=== PATIENT | female | born 1975 | race Caucasian/White ===

== ENCOUNTER 2016-10-10 09:38 | Emergency (ER) | payer OTHER ==
[2016-10-10 09:44] VITALS: BMI 25.1
[2016-10-10] MEDS ORDERED: ACETAMINOPHEN 325 MG TABLET (FP) PO ONE (09:45)
[2016-10-10] MEDS ORDERED: ACETAMINOPHEN 1000 MG/100 ML VIAL (NON FORMULARY) IVPB ONE (09:57)
[2016-10-10] MEDS ORDERED: SODIUM CHLORIDE 1,000 ML IV STA ×2 (09:57→11:47)
--- NOTE | 2016-10-10 10:06 | PDOC ---
History of Present Illness - General Chief Complaint: Pain Stated Complaint: FEVER, HEADACHE, BACK PAIN Time Seen by Provider: 10/10/16 09:54 History Source: Patient Exam Limitations: No Limitations - History of Present Illness Initial Comments: CHIEF COMPLAINT: 41 y/o febrile, tachycardic female with no significant PMH c/ o flu like symptoms for the past 4 days. HISTORY OF PRESENT ILLNESS: The patient admits to fever, chills, body aches, cough, runny nose and right side pain for the past 4 days. She denies sore throat, n/v/d, constipation, hematuria, dysuria. She has been taking Ibuprofen , dayquil and nyquil at home for her symptoms. She did not take anything for her symptoms today. Vital signs on arrival are notable for pulse of 125 secondary to temp of 102.8. REVIEW OF SYSTEMS: GENERAL/CONSTITUTIONAL: + fever/chills. No weakness. No weight change. HEAD, EYES, EARS, NOSE AND THROAT: No change in vision. No ear pain or discharge. No sore throat. CARDIOVASCULAR: No chest pain or shortness of breath. RESPIRATORY: +cough. No wheezing, or hemoptysis. GASTROINTESTINAL: +right side pain. No nausea, vomiting, diarrhea, constipation. GENITOURINARY: No dysuria, frequency, or change in urination. MUSCULOSKELETAL: No joint or muscle swelling or pain. No neck or back pain. SKIN: No rash or easy bruising. NEUROLOGIC: No headache, vertigo, loss of consciousness, or loss of sensation. PHYSICAL EXAM: GENERAL: The patient is awake, alert, and fully oriented, in no acute distress. She is ambulatory and well appearing, but warm to touch. Very intermittent dry cough with deep inspiration. HEAD: Normal with no signs of trauma. ENT: Pupils equal, round and reactive to light, extraocular movements intact, sclera anicteric, conjunctiva clear. Neck supple. LUNGS: Clear to auscultation bilaterally. Normal excursion. No respiratory distress or use of accessory muscles. CV: RRR, S1/S2, no MRG. Cap refill < 2 sec. ABDOMEN: Soft, non-distended, TTP of RUQ with negative santoro's sign. Right flank pain with palpation. No rebound, guarding or rigidity. BACK: Right CVA TTP. No left CVA TTP. EXTREMITIES: Normal range of motion, no edema. NEUROLOGICAL: Normal speech, normal gait. CN II-XII grossly intact. PSYCH: Normal mood, normal affect. SKIN: Warm, dry, normal turgor, no rashes or lesions noted. Past History - Past Medical History Allergies/Adverse Reactions: Allergies Allergy/AdvReac Type Severity Reaction Status Date / Time No Known Allergies Allergy Verified 10/10/16 09:44 Home Medications: Ambulatory Orders Acetaminophen [Tylenol] 650 mg PO Q4H #20 tablet 10/10/16 Ciprofloxacin [Cipro -] 500 mg PO Q12H #20 tablet 10/10/16 Ibuprofen 600 mg PO Q6H #20 tablet 10/10/16 Thyroid Disease: Yes - Psycho/Social/Smoking Cessation Hx Anxiety: No Suicidal Ideation: No Smoking History: Never smoked Hx Alcohol Use: No Drug/Substance Use Hx: No Substance Use Type: None *Physical Exam - Vital Signs Last Vital Signs Temp Pulse Resp BP Pulse Ox 102.8 F H 125 H 20 147/110 96 10/10/16 09:40 10/10/16 09:40 10/10/16 09:40 10/10/16 09:40 10/10/16 09:40 ED Treatment Course - LABORATORY CBC & Chemistry Diagram: 10/10/16 10:00 10/10/16 10:00 - Medications Given in the ED: ED Medications Discontinued Medications Generic Name Dose Route Start Last Admin Trade Name Freq PRN Reason Stop Dose Admin Acetaminophen 650 mg 10/10/16 09:45 10/10/16 09:45 Tylenol - PO 10/10/16 09:46 650 mg NOW ONE Administration Medical Decision Making - Medical Decision Making A/P: 41 y/o female with flu like symptoms and right CVA TTP. Plan is as follows: 1. Labs 2. IV fluids 3. Influenza 4. UA/hcg/culture Ordered IV Ofirmev but patient received PO tylenol in triage. Will d/c that order. Gallbladder ultrasound IMPRESSION: No definite evidence of cholelithiasis or acute cholecystitis. Pelvic ultrasound IMPRESSION: The ovaries could not be identified. The remainder of the study appears unremarkable. Renal Ultrasound IMPRESSION: Mild nonspecific dilatation of the lower pole moiety of a dual right renal collecting system is noted. If there is clinical concern for possible ureteral obstruction additional evaluation utilizing CT may be performed. Spiral CT ordered. Spiral CT IMPRESSION: Right renal swelling is noted as well as right perirenal edema which may be on the basis of acute pyelonephritis and/or recent obstruction. No current obstructing calculus is identified. Apparent mild dilatation of the corresponding proximal right ureter is visualized. THe patient is now afebrile and states she feels much better. She appears much more comfortable. Discussed the results with the patient and with Dr. Berry. He thinks, given her age, she can be discharged to home with rx for cipro. I explained to the patient that she would need to alternate between tylenol and ibuprofen every 4 hours for fever, drink at least 10 glasses of water daily and complete entire course of antibiotics. I instructed the patient to return to the ER immediately if she developed any worsening of symptoms or if her symptoms did not improve in 2-3 days. The patient verbalizes understanding of all instructions, has no further questions and is awaiting discharge. *DC/Admit/Observation/Transfer Diagnosis at time of Disposition: Pyelonephritis UTI (urinary tract infection) Qualifiers: Urinary tract infection type: acute pyelonephritis Qualified Code(s): N10 - Acute tubulo-interstitial nephritis - Discharge Dispostion Disposition: HOME Condition at time of disposition: Improved - Patient Instructions Printed Discharge Instructions: DI for Urinary Tract Infection (UTI), DI for Kidney Infection Additional Instructions: Discharge Instructions: -Alternate between 650mg of Tylenol and 600mg of Ibuprofen every 4 hours for fever -Take entire 10 day course of antibiotics -Drink at least 10 glasses of water per day -If no improvement in symptoms in 2-3 days OR if any worsening symptoms, return to the ER immediately.
[2016-10-10 10:11] LABS: URINE APPEARANCE SLCLOUDY; URINE BILIRUBIN NEGATIVE (NEGATIVE); URINE COLOR YELLOW; URINE GLUCOSE (UA) NEGATIVE (NEGATIVE); URINE KETONE 1+ (NEGATIVE); URINE NITRITE POSITIVE (NEGATIVE); URINE UROBILINOGEN NEGATIVE E.U./dl (0.2-1.0)
[2016-10-10 10:12] LABS: URINE BLOOD 1+ (NEGATIVE); URINE LEUK ESTERASE 3+ (NEGATIVE); URINE PROTEIN 1+ (NEGATIVE)
[2016-10-10 10:17] LABS: URINE MUCUS RARE; URINE RBC 5 /hpf (0-3); URINE WBC 46 /hpf (3-5)
[2016-10-10 10:23] LABS: BASOPHIL 0.1 % (0-2.0); MCH 29.3 pg (25.7-33.7); MCHC 33.9 g/dl (32.0-36.0); MEAN CELL VOLUME 86.4 fl (80-96); MEAN PLT VOLUME 7.9 fl (7.5-11.1); NEUTROPHILS 87.4 % (42.8-82.8); PLATELET COUNT 206 K/MM3 (134-434); RDW 12.8 % (11.6-15.6); WHITE BLOOD COUNT 15.8 K/mm3 (4.0-10.0)
[2016-10-10 10:50] LABS: ALBUMIN 3.3 g/dl (3.4-5.0); ALK PHOS 131 U/L (45-117); ANION GAP 11 (8-16); BILIRUBIN,TOTAL 0.5 mg/dL (0.2-1.0); CALCIUM 8.3 mg/dL (8.5-10.1); CO2 25 mmol/L (21-32); CREATININE 0.6 mg/dL (0.55-1.02); GLUCOSE,RANDOM 105 mg/dL (74-106); SGOT/AST 49 U/L (15-37); SGPT/ALT 103 U/L (12-78); TOT PROT 6.9 g/dl (6.4-8.2)
--- NOTE | 2016-10-10 10:57 | PDOC ---
*Physical Exam - Vital Signs Last Vital Signs Temp Pulse Resp BP Pulse Ox 102.8 F H 125 H 20 147/110 96 10/10/16 09:40 10/10/16 09:40 10/10/16 09:40 10/10/16 09:40 10/10/16 09:40 ED Treatment Course - LABORATORY CBC & Chemistry Diagram: 10/10/16 10:00 10/10/16 10:00 - ADDITIONAL ORDERS Additional order review: Laboratory Results 10/10/16 10/10/16 10:00 10:00 Sodium 136 Potassium 3.5 Chloride 100 Carbon Dioxide 25 Anion Gap 11 BUN 10 Creatinine 0.6 Creat Clearance w eGFR > 60 Random Glucose 105 Calcium 8.3 L Total Bilirubin 0.5 AST 49 H ALT 103 H Alkaline Phosphatase 131 H Total Protein 6.9 Albumin 3.3 L Urine Color Yellow Urine Appearance Slcloudy Urine pH 6.0 Ur Specific [place] 1.018 Urine Protein 1+ H Urine Glucose (UA) Negative Urine Ketones 1+ H Urine Blood 1+ H Urine Nitrite Positive Urine Bilirubin Negative Urine Urobilinogen Negative Ur Leukocyte Esterase 3+ H Urine RBC 5 Urine WBC 46 Ur Epithelial Cells Rare Urine Mucus Rare Urine HCG, Qual Negative 10/10/16 10:00 Influenza Types A,B Antigen (LAURA) - Final Nasopharyngeal Swab - Final 10/10/16 10:00 RBC 4.00 MCV 86.4 MCHC 33.9 RDW 12.8 MPV 7.9 Neutrophils % 87.4 H Lymphocytes % 5.9 L Monocytes % 6.6 Eosinophils % 0.0 Basophils % 0.1 - Medications Given in the ED: ED Medications Discontinued Medications Generic Name Dose Route Start Last Admin Trade Name Sonido PRN Reason Stop Dose Admin Acetaminophen 650 mg 10/10/16 09:45 10/10/16 09:45 Tylenol - PO 10/10/16 09:46 650 mg NOW ONE Administration Acetaminophen 1,000 mg 10/10/16 09:57 10/10/16 10:24 Ofirmev Injection - IVPB 10/10/16 09:58 Not Given ONCE ONE Sodium Chloride 1,000 mls @ 1,000 mls/hr 10/10/16 09:57 10/10/16 10:19 Normal Saline - IV 10/10/16 10:56 1,000 mls/hr ASDIR STA Administration Medical Decision Making - Medical Decision Making 10/10/16 10:57 Pt seen by the Advanced Practice Provider under my direct supervision Ancillary studies reviewed I agree with plan as outlined by the Advanced Practice Provider ASHLYN Mcgowan *DC/Admit/Observation/Transfer Diagnosis at time of Disposition: UTI (urinary tract infection), Pyelonephritis - Discharge Dispostion Disposition: HOME Condition at time of disposition: Improved - Prescriptions Prescriptions: Ciprofloxacin [Cipro -] 500 mg PO Q12H #20 tablet Ibuprofen 600 mg PO Q6H #20 tablet Acetaminophen [Tylenol] 650 mg PO Q4H #20 tablet - Patient Instructions Printed Discharge Instructions: DI for Kidney Infection, DI for Urinary Tract Infection (UTI) Additional Instructions: Discharge Instructions: -Alternate between 650mg of Tylenol and 600mg of Ibuprofen every 4 hours for fever -Take entire 10 day course of antibiotics -Drink at least 10 glasses of water per day -If no improvement in symptoms in 2-3 days OR if any worsening symptoms, return to the ER immediately.
[2016-10-10] MEDS ORDERED: IBUPROFEN 800 MG/8 ML IJ IVPB ONE (11:20)
[2016-10-10 11:21] VITALS: TEMP 99.3
[2016-10-10] MEDS ORDERED: LEVOFLOXACIN 750 MG IVPB 150 ML IVPB ONE (13:07)
[2016-10-10] MEDS ORDERED: LEVOFLOXACIN 500 MG IVPB 100 ML IVPB ONE (13:20)
[2016-10-10] MEDS ORDERED: LEVOFLOXACIN 250 MG IVPB 50 ML IVPB ONE (13:20)
[2016-10-10 16:36] VITALS: BP 121/73; PULSE 83
== END 2016-10-10 17:19 | disposition home or self-care (01) ==
LOC: JER 09:38
PROC: 3E0337Z Introduction of Electrolytic and Water Balance Substance into Peripheral Vein, Percutaneous Approach (ICD-10-PCS; principal; 2016-10-10)
PROC: 3E03329 Introduction of Other Anti-infective into Peripheral Vein, Percutaneous Approach (ICD-10-PCS; 2016-10-10)
PROC: 3E0333Z Introduction of Anti-inflammatory into Peripheral Vein, Percutaneous Approach (ICD-10-PCS; 2016-10-10)
DX: N10 Acute pyelonephritis (principal)
CPT/HCPCS: 36415; 74176; 76705-TC; 76775-TC; 76856-TC; 80053; 81003; 81015; 83605; 84703; 85025; 87086; 87186; 87804; 96361; 96365; 96375; 99283-25